=== PATIENT | male | born 1970 | race Caucasian/White ===

== ENCOUNTER → 2017-02-04 | Outpatient (CLI) | payer MEDICAID ==
[~2017-02-04] MED LIST: AMOXICILLIN 50500 MG PO; AUGMENTIN 875-1 EACH PO; AZITHROMYCIN250 MG PO; BACTRIM DS 8001 TA1 PO; BROMFED DM COU473 ML PO; CIPRO 500MG TA500 MG PO; CORTISPORIN TC10 ML OT; FLEXERIL10 MG PO; KEFLEX 500MG.500 MG PO; MEDROL 4MG. DOSE4 MG PO; NAPROXEN SODIU500 MG PO; NOMEDS; NOMEDS *; NOMEDS XX; PERCOCET 5/3251 EACH PO; PERIDEX OR1 DOSE/473 PO; PREDNISONE 20MG20 MG PO; PROCTOCREAM-HC2.51 TP; TESSALON PERLE100 MG PO; TRAMADOL 50MG T50 MG PO; VICODIN 5/500 T1 TAB PO; VOLTAREN75 MG PO; ZITHROMAX TRI-500 M1 PO; ZOFRAN ODT4 MG PO
[2017-02-04 14:30] LABS: HEMOGLOBIN 13.1 g/dL (14.1-18.0); LYMPH % 20.9 % (10-50)
[2017-02-04 14:32] LABS: BUN 9 mg/dL (7-18)
[2017-02-04 14:34] LABS: GFR (ESTIMATED) 80 ML/MIN (>60)
== END ==
LOC: LAB 13:25
PROVIDERS: Nurse Practitioner Family
DX: R25.2 Cramp and spasm (principal)

== ENCOUNTER 2017-06-24 18:43 | Emergency (ER) | payer MEDICAID ==
[~2017-06-24] VITALS: Ht 172.7 cm; Wt 61.7 kg
--- NOTE | 2017-06-24 19:03 | Urgent Treatment Center Report ---
History of Present Issue Date/Time Seen by Provider 06/24/17 1902 Visit Reason Pt arrived:Walked Presenting Problem:PT STATES HE HAS BACK PAIN AND A KNOT THAT IS PAINFUL ON HIS BUTT CHEEK. FOR 3 DAYS Location if Accident: Onset of symptoms date/time:/ or onset unknown for:MEDICAL HX UNKNOWN Have you (or family members/close friends) recently traveled outside the [place]? N If Yes, where/when: Have you had exposure to infectious disease within the past month? TB? Other? Specify: c/o "sore spot" on buttock "in crack near my hole". First noticed 3 days ago while wiping. "I don't know what hemorrhoids on males are like". Painful when wiped but no pain with movement or sitting. Tried to feel for it today but didn' t feel it. Wants to make sure resolved. Also wants to see about "having my back pain records relooked at". Hx of chronic back pain. Reports he was referred to Dr. Aguilera NS by PCP, Simone but he recommended lorena placement and pt refused that. "I want to keep working to feed my 5 girls and disability denied me". Pain has been slowly getting worse throughout the year. Right LE continues to feel numb at night, "has since before I saw Dr. Aguilera". Hasn't taken or tried anything for symptoms. "I am not one to take medications and I won't. 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 I start next week and want to be able to continue working.". Source patient Exam Limitations no limitations ALLERGIES Coded Allergies: No Known Allergies (11/05/16) Home Medications Reported Medications No Home Medications (NO HOME MEDICATIONS) 1 EACH XX ONCE History Medical History General CAD? No Angina: No ID: No Hypertension? No Hyperlipidemia? No CHF? No DVT? No PE? No COPD? Yes Asthma? No Anemia? No GERD? No Gastric ulcers? No GI Bleed? No Hernia? No Thyroid Problems? No Hypothyroidism? No CVA? No Seizures? No Diabetes? No Renal Insuffiency? No UTI? No Stones? No BPH? No GB Disease: No Nephritic Syndrome? No Asplenia? No Hepatitis? No Sickle Cell Disease? No Arthritis? Yes Migraines? No Cataracts? No Glaucoma? No MRSA? No HIV? No TB? No Anxiety? No Depression? No Cancer? No More? No Immunization HX DT/Tetanus < 1 Year Ago Surgical Hx Previous Surgery?Y Dental Surgery Social History Smoking Hx Smoker: Current Every Day Smoker Tobacco: Yes Type Cigarettes Packs/day < 1 Pack Alcohol Alcohol: No Review of Systems All Other Systems Reviewed and Negative Constitutional denies fever, denies malaise Gastrointestinal denies abdominal pain, denies constipation, denies diarrhea Musculoskeletal see HPI Skin see HPI, denies other (drainage) Psychiatric/Neurological see HPI Physical Exam Vital Signs Vital Signs Date Time Temp Pulse Resp B/P Pulse O2 O2 Flow FiO2 Ox Delivery Rate 06/24 1928 98.3 63 18 116/83 99 06/24 185 98.3 63 18 116/83 99 General Appearance normal appearance, no apparent distress Respiratory Status No: respiratory distress. Cardiovascular no peripheral edema Rectal normal exam Nurse present during exam? Yes (Terri) Neurologic alert Skin intact, normal color, warm/dry Medical Decision Making LABS/Meds/Orders Pt receiving controlled substance in ED? No Departure Departure Time of Disposition 1924 Disposition DC Home or Self Care(routine) Clinical Impression Primary Impression: Chronic back pain Qualifiers: Back pain location: low back pain Back pain laterality: unspecified Sciatica presence: with sciatica Sciatica laterality: sciatica of right side Qualified Code: M54.41 - Lumbago with sciatica, right side Secondary Impressions: Normal rectal exam Condition STABLE Referrals Sarita SPANN,John Head (Family) Call Tuesday and schedule FU appointment to discuss chronic back pain. Return to [facility] if "soreness" returns to buttock. Patient Instructions DI for Hemorrhoids Additional Instructions Educated about hemorrhoids and what to expect with them. Agrees to return if "spot" reappears. Plans to discuss chronic back pain with Simone PCP Discharge Counseling Counseled pt/family regarding diagnosis, home care, follow up needs at 1941
[2017-06-24 19:28] VITALS: BP 116/83
== END 2017-06-24 19:27 | disposition home or self-care (01) ==
LOC: UTC 18:43
DX: M54.41 Lumbago with sciatica, right side (principal); J44.9 Chronic obstructive pulmonary disease, unspecified; Z72.0 Tobacco use

== ENCOUNTER 2017-08-13 10:56 | Emergency (ER) | payer MEDICAID ==
[~2017-08-13] VITALS: Ht 172.7 cm; Wt 63.5 kg
--- OUTSIDE RECORDS SUMMARY | 2017-08-13 11:04 | External Medical Summary Rpt | CCD ---
Author Author , URMILA Organization URMILA Address Unknown Phone [email or web address] Care Team Providers Care Barrel Lathe Operator Name Role Phone Xavi Dickens MD, Xavi Dickens III, MD, Alexander Sharma III, MD Purpose Continuity of Care Document - 04-27-2013 through 2016 Problems Code Diagnosis DOS Provider Status 305.1 305.1 08-13-2013 [place] TOBACCO USE [facility] 465.9 465.9 ACUTE 08-13-2013 [place] URI NOS [facility] 496 496 CHR 08-13-2013 [place] AIR[facility]AY [facility] 455.4 455.4 EXT 05-07-2013 [place] THROMBOS [facility] HEMORRHOID [facility] B34.9 VIRAL INFECTION, UNSPECIFIED H60.90 UNSPECIFIED OTITIS EXTERNA, UNSPECIFIED EAR H92.09 OTALGIA, UNSPECIFIED EAR J06.9 ACUTE UPPER RESPIRATORY INFECTION, UNSPECIFIED J20.9 ACUTE BRONCHITIS, UNSPECIFIED J32.9 CHRONIC SINUSITIS, UNSPECIFIED J40 BRONCHITIS, NOT SPECIFIED ACUTE OR CHRONIC M54.30 SCIATICA, UNSPECIFIED SIDE M54.41 LUMBAGO WITH SCIATICA, RIGHT SIDE 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] R07.89 OTHER CHEST PAIN R11.10 VOMITING, UNSPECIFIED R11.2 NAUSEA WITH VOMITING, UNSPECIFIED S01.01XA LACERATION WITHOUT FOREIGN BODY OF SCALP, INITIAL ENCOUNTER Allergies, Adverse Reactions, Alerts Type Allergy to substance Adverse Reaction to Substance Substance Reaction Severity NO KNOWN ALLERGIES Unknown Unknown Medications Na ND Rx Da Fi Fi Am Da Di Ph RX Ph St me C No te ll ll ou ys ag ar # ys at rm s nt no ma ic us Or Da si cy ia de te s n re d Sa 63 10 0 No li 80 -0 ne 70 1- Lo 10 20 ng Fl 07 13 er us 5 h Ac 10 ti ML ve Sy ri ng e Vital Signs 08-13-2013 08:34 Name Value Interpretat Reference Comment ion Range Body 97.7 [degF] Temperature BP 72 mm[Hg] Diastolic BP Systolic 128 mm[Hg] Heart 66 /min Rate/Pulse O2% 98 % Respiratory 17 /min Rate 08-13-2013 08:26 Name Value Interpretat Reference Comment ion Range BP 72 mm[Hg] Diastolic BP Systolic 128 mm[Hg] Heart 66 /min Rate/Pulse O2% 98 % Respiratory 17 /min Rate 07-03-2013 19:56 Name Value Interpretat Reference Comment ion Range Body 99.0 [degF] Temperature BP 72 mm[Hg] Diastolic BP Systolic 136 mm[Hg] Heart 77 /min Rate/Pulse O2% 97 % Respiratory 16 /min Rate 07-03-2013 18:00 Name Value Interpretat Reference Comment ion Range BP 79 mm[Hg] Diastolic BP Systolic 123 mm[Hg] Heart 89 /min Rate/Pulse O2% 97 % Respiratory 20 /min Rate 05-07-2013 16:05 Name Value Interpretat Reference Comment ion Range Body 98.1 [degF] Temperature BP 73 mm[Hg] Diastolic BP Systolic 113 mm[Hg] Heart 67 /min Rate/Pulse O2% 97 % Respiratory 16 /min Rate 04-27-2013 09:15 Name Value Interpretat Reference Comment ion Range Body 98 [degF] Temperature BP 76 mm[Hg] Diastolic BP Systolic 114 mm[Hg] Heart 62 /min Rate/Pulse O2% 100 % Respiratory 20 /min Rate Results Labs Lab Lab Date Result Refere Interp Status Commen Order Detail nces retati t Range on BASIC METABOLIC PANEL (07-03-2013 18:00) Glucose 116 74-106 complet 013 mg/dL ed Bld-mCn 18:00 c BUN 12 7-18 complet Bld-mCn 013 mg/dL ed c 18:00 Creat 1.0 0.8-1.3 complet SerPl-m 013 mg/dL ed Cnc 18:00 ESTIMAT 79 50-200 complet ED 013 ML/MIN ed CREATIN 18:00 INE CLEARAN CE GFR 82 Greater complet (ESTIMA 013 ML/MIN than ed SHERITA) 18:00 60 Sodium 10-01-2 144 136-145 complet SerPl-s 013 mmoL/L ed Cnc 18:00 Potassi 3.7 3.5-5.1 complet um 013 mmoL/L ed SerPl-s 18:00 Cnc Chlorid 106 98-107 complet e 013 mmoL/L ed SerPl-s 18:00 Cnc CO2 27 21.0-32 complet SerPl-s 013 mmoL/L .0 ed Cnc 18:00 Calcium 8.5 8.5-10. complet 013 mg/dL 1 ed SerPl-m 18:00 Cnc TROPONIN I (07-03-2013 18:00) TROPONI Less 0.00-0. complet N I 013 than 06 ed 18:00 0.02 ng/mL CBC with AUTO DIFF (07-03-2013 18:00) WBC # 07-03- 9.5 4.8-10. complet Bld 013 K/MM3 8 ed Auto 18:00 RBC # 2 4.23 4.6-6.2 complet Bld 013 M/mm3 ed Auto 18:00 Hgb 13.6 14.1-18 complet Bld-mCn 013 g/dL .0 ed c 18:00 Hct Fr 40.9 % 42.0-52 complet Bld 013 .0 ed 18:00 MCV RBC 96.7 fl 82.2-97 complet 013 .8 ed 18:00 MCH RBC 32.2 pg 27-31.2 complet Qn 013 ed Auto 18:00 MEAN 33.3 31.8-35 complet CORPUSC 013 g/dl .4 ed ULAR 18:00 HGB CONC RDW RBC 14.2 % 11.5-17 complet Auto 013 .5 ed 18:00 Platele 304 142-424 complet t Bld 013 K/mm3 ed Ql 18:00 Manual MEAN 6.9 fl 7.4-10. complet PLATELE 013 4 ed T 18:00 VOLUME Granulo 61.7 % 37.0-80 complet cytes 013 .0 ed Fr Bld 18:00 Auto LYMPH % 07-03-2 31.3 % 10-50 complet 013 ed 18:00 Monocyt 10-2 3.4 % 1.7-9.3 complet es Fr 013 ed Bld 18:00 Auto Eosinop 10-2 3.0 % 0.1-12. complet hil Fr 013 0 ed Bld 18:00 Auto Basophi 07-03-2 0.7 % 0.1-2.0 complet ls Fr 013 ed Bld 18:00 Auto Granulo 07-03-2 5.9 1.3-8.0 complet cytes # 013 K/mm3 ed Bld 18:00 Auto Lymphoc 07-03-2 3.0 0.7-4.5 complet ytes Fr 013 K/mm3 ed Bld 18:00 Auto Monocyt 07-03-2 0.3 0.1-1.0 complet es # 013 K/mm3 ed Bld 18:00 Auto Eosinop 07-03-2 0.3 0.0-0.4 complet hil # 013 K/mm3 ed Bld 18:00 Auto Basophi 07-03-2 0.1 0-0.2 complet ls # 013 K/MM3 ed Bld 18:00 Auto STREP SCREEN (RAPID) (04-27-2013 08:45) STREP NEGATIV complet SCREEN 013 E ed (RAPID) 08:45 Encounters Encounter Start End Date Code Location Performer Type Date Emergency SULEIMAN Sharma (ER) 3 08:18 3 08:35 [facility] Alexander Dolan Emergency SULEIMAN Aldana MD (ER) 3 17:47 3 19:56 [facility] Emergency SULEIMAN Tamyao MD (ER) 3 14:37 3 16:07 [facility] er R. Emergency SULEIMAN Sharma (ER) 3 09:01 3 09:19 [facility] Alexander Dolan
--- OUTSIDE RECORDS SUMMARY | 2017-08-13 11:04 | External Medical Summary Rpt | CCD ---
Author Author , URMILA Organization URMILA Address Unknown Phone [email or web address] Care Team Providers Care Cable Maintainer Name Role Phone Xavi Dickens MD, Xavi Dickens III, MD, Alexander Sharma III, MD Purpose Continuity of Care Document - 04-27-2013 through 2016 Problems Code Diagnosis DOS Provider Status 305.1 305.1 08-13-2013 [place] TOBACCO USE [facility] 465.9 465.9 ACUTE 08-13-[address] [place] [address] [facility] 496 496 CHR 08-13-2013 [place] AIRWAY [facility] 455.4 455.4 EXT 05-07-2013 [place] THROMBOS [facility] HEMORRHOID [facility] B34.9 VIRAL INFECTION, UNSPECIFIED H60.90 UNSPECIFIED OTITIS [...] SULEIMAN Sharma (ER) 3 08:18 3 08:35 [facility] Alexander Dolan Emergency SULEIMAN Aldana MD (ER) 3 17:47 3 19:56 [facility] Emergency SULEIMAN Tamayo MD (ER) 3 14:37 3 16:07 [facility] er R. Emergency SULEIMAN Sharma (ER) 3 09:01 3 09:19 [facility] Alexander Dolan
--- OUTSIDE RECORDS SUMMARY | 2017-08-13 11:05 | External Medical Summary Rpt | CCD ---
Author Author [employer] Organization [employer] Address Unknown Phone Unavailable Purpose Continuity of Care Document - through 2016
--- OUTSIDE RECORDS SUMMARY | 2017-08-13 11:05 | External Medical Summary Rpt | CCD ---
Demographics Preferred Language Kinyarwanda Marital Status Unknown Denominational Affiliation Unknown Race Unknown Ethnic Group Unknown Author Author , URMILA KEARNS Address Unknown Phone [email or web address] Immunization Name Date Rout CVX Reac Dose Comm Prov Is Faci e tion ent ider Refu lity Give sed n Td 03-1 9 999 Hist H149 No H149 (meseret 0-19 ori lt), 97 al Info adso rmat rbed ion - Sour ce Unsp ecif ied
--- OUTSIDE RECORDS SUMMARY | 2017-08-13 11:05 | External Medical Summary Rpt | CCD ---
Demographics Preferred Language Italian Marital Status Unknown Faith Affiliation Unknown Race Unknown Ethnic Group Unknown Author Author , URMILA KEARNS Address Unknown Phone [email or web address] Immunization Name Date Rout CVX Reac Dose Comm Prov Is Faci e tion ent ider Refu lity Give sed n Td 03-1 9 999 Hist H149 No H149 (meseret 0-19 ori lt), 97 al Info adso rmat rbed ion - Sour ce Unsp ecif ied
--- NOTE | 2017-08-13 11:23 | Urgent Treatment Center Report ---
History of Present Issue Date/Time Seen by Provider 08/13/17 1122 Visit Reason Pt arrived:Walked Presenting Problem:PT C/O N/V/D SINCE TUESDAY AND RASH ON LEFT HIP Location if Accident: Onset of symptoms date/time:/ or onset unknown for:MEDICAL HX UNKNOWN Have you (or family members/close friends) recently traveled outside the [place]? N If Yes, where/when: Have you had exposure to infectious disease within the past month? TB? Other? Specify: Source patient, RN notes reviewed Exam Limitations no limitations Comment Patient states has had nausea, vomiting and diarrhea since last night and unable to keep anything down. Has "almost bronchitis", diagnosed by [facility] yesterday. Was given medications to treat that, but can't recall what they are, and again, states he can't keep anything down. Denies ear pain, sore throat. Denies fever. Woke up this am with a rash on his left hip as well. ALLERGIES Coded Allergies: No Known Allergies (11/05/16) Home Medications Reported Medications No Home Medications (NO HOME MEDICATIONS) 1 EACH XX ONCE History Medical History General CAD? No Angina: No CA: No Hypertension? No Hyperlipidemia? No CHF? No DVT? No PE? No COPD? Yes Asthma? No Anemia? No GERD? No Gastric ulcers? No GI Bleed? No Hernia? No Thyroid Problems? No Hypothyroidism? No CVA? No Seizures? No Diabetes? No Renal Insuffiency? No UTI? No Stones? No BPH? No GB Disease: No Nephritic Syndrome? No Asplenia? No Hepatitis? No Sickle Cell Disease? No Arthritis? Yes Migraines? No Cataracts? No Glaucoma? No MRSA? No HIV? No TB? No Anxiety? No Depression? No Cancer? No More? No Immunization HX DT/Tetanus < 1 Year Ago Surgical Hx Previous Surgery?Y Dental Surgery Social History Smoking Hx Smoker: Current Every Day Smoker Tobacco: Yes Type Cigarettes Packs/day < 1 Pack Alcohol Alcohol: No Review of Systems All Other Systems Reviewed and Negative Respiratory cough, shortness of breath, wheezing Gastrointestinal diarrhea, nausea, vomiting Skin rash Physical Exam Vital Signs Vital Signs Date Time Temp Pulse Resp B/P Pulse O2 O2 Flow FiO2 Ox Delivery Rate 08/13 1107 98.0 72 20 137/86 97 General Appearance normal appearance, no apparent distress Ear, Nose, Throat hearing grossly normal, normal ENT inspection Neck normal inspection, non-tender, supple, full range of motion Respiratory Status No: respiratory distress, trachea midline, chest symmetrical. Lung Sounds bilateral: decreased breath sounds, rhonchi. Cardiovascular normal exam, regular rate/rhythm, no peripheral edema, no gallop, no JVD, no murmur, no rub Gastrointestinal normal bowel sounds, normal exam, non tender Extremities non-tender, normal range of motion, normal inspection, normal capillary refill Neurologic alert, normal exam, oriented x 3 Mental status normal mood/affect Skin shingles (left anterior hip) Medical Decision Making LABS/Meds/Orders Pt receiving controlled substance in ED? No Progress [facility] Progress Notes Date 08/13/17 Comment Offered injections to treat COPD as he can't keep anything down, but he declined. Doesn't like shots. Departure Departure Time of Disposition 1134 Disposition DC Home or Self Care(routine) Clinical Impression Primary Impression: Gastroenteritis Secondary Impressions: Bronchitis Shingles Qualifiers: Herpes zoster complications: without complications Qualified Code: B02.9 - Zoster without complications Condition STABLE Referrals Simone Buckley APRN: 2 Days-Call Office Patient Instructions DI for Shingles, DI for Viral Gastroenteritis -- Adult Additional Instructions Clear liquids only X 24 hours, then BRAT diet X 24 hours and advance diet slowly as tolerated after that. No coffee, no milk. Take medications prescribed for bronchitis after stomach settles. No smoking. Keep left hip covered. Wash hands frequently. Neosporin to drying lesions. Discharge Counseling Counseled pt/family regarding diagnosis, medications/RX, home care, follow up needs Prescriptions Current Visit Scripts Ondansetron (Zofran Odt) 8 MG PO Q8HP PRN vomiting #15 TAB VALACYCLOVIR HCL (Valtrex) 1 GM PO BID #20 TAB Methylprednisolone (Medrol Dose Pedro) 4 MG PO UD #1 PEDRO TAKE DIRECTED ON PACKAGING at 1140
[2017-08-13] MEDS ORDERED: ZOFRAN ODT8 M1 PO (11:39)
[2017-08-13] MEDS ORDERED: VALTREX1 GM PO (11:39)
[2017-08-13] MEDS ORDERED: MEDROL 4MG. DOSE4 MG PO (11:39)
[2017-08-13 11:45] VITALS: BP 137/86
== END 2017-08-13 11:46 | disposition home or self-care (01) ==
LOC: UTC 10:56
DX: B02.9 Zoster without complications (principal); F17.210 Nicotine dependence, cigarettes, uncomplicated

== ENCOUNTER 2017-08-20 15:15 | Emergency (ER) | payer MEDICAID ==
[~2017-08-20] VITALS: Ht 172.7 cm; Wt 65.0 kg
[~2017-08-20 15:15] MED LIST changes: +VALTREX1 GM PO; +ZOFRAN ODT8 M1 PO
--- OUTSIDE RECORDS SUMMARY | 2017-08-20 15:20 | External Medical Summary Rpt | CCD ---
Author Author , URMILA Organization URMILA Address Unknown Phone [email or web address] Care Team Providers Care Electric Motor Analyst Name Role Phone Xavi Dickens MD, Xavi Dickens III, MD, Alexander Sharma III, MD Purpose Continuity of Care Document - 04-27-2013 through 2016 Problems Code Diagnosis DOS Provider Status 305.1 305.1 08-13-2013 [place] TOBACCO USE [facility] 465.9 465.9 ACUTE 08-13-2013 [place] URI NOS [facility] 496 496 CHR 08-13-2013 [place] AIRWAY [facility] OBSTRUCT [facility] NEC 455.4 455.4 EXT 05-07-2013 [place] THROMBOS [facility] HEMORRHOID [facility] B34.9 VIRAL [...] K/MM3 8 ed Auto 18:00 RBC # 07-03-2 4.23 4.6-6.2 complet Bld 013 M/mm3 ed [...] % 10-50 complet 013 ed 18:00 Monocyt 07-03-2 3.4 % 1.7-9.3 complet es Fr 013 ed Bld 18:00 Auto Eosinop 07-03-2 3.0 % 0.1-12. complet hil Fr 013 [...] SULEIMAN Sharma (ER) 3 08:18 3 08:35 [facility] Alexander Dolan Emergency SULEIMAN Aldana MD (ER) 3 17:47 3 19:56 [facility] Emergency SULEIMAN Tamayo MD (ER) 3 14:37 3 16:07 [facility] er R. Emergency SULEIMAN Sharma (ER) 3 09:01 3 09:19 [facility] Alexander Dolan
--- OUTSIDE RECORDS SUMMARY | 2017-08-20 15:20 | External Medical Summary Rpt | CCD ---
Author Author , URMILA Organization URMILA Address Unknown Phone [email or web address] Care Team Providers Care Benefits Representative Name Role Phone Xavi Dickens MD, Xavi Dickens III, MD, Alexander Sharma III, MD Purpose Continuity of Care Document - 04-27-2013 through 2016 Problems Code Diagnosis DOS Provider Status 305.1 305.1 08-13-2013 [place] TOBACCO USE [facility] 465.9 465.9 ACUTE 08-13-2013 [place] URI NOS [facility] 496 496 CHR 08-13-[address] [place] [address] [facility] OBSTRUCT [facility] NEC 455.4 455.4 EXT 05-07-[address] [place] [address] [facility] HEMORRHOID [facility] B34.9 VIRAL INFECTION, UNSPECIFIED H60.90 UNSPECIFIED OTITIS [...] SULEIMAN Sharma (ER) 3 08:18 3 08:35 [facility] Alexander Dolan Emergency SULEIMAN Aldana MD (ER) 3 17:47 3 19:56 [facility] Emergency SULEIMAN Tamayo MD (ER) 3 14:37 3 16:07 [facility] er R. Emergency SULEIMAN Sharma (ER) 3 09:01 3 09:19 [facility] Alexander Dolan
--- OUTSIDE RECORDS SUMMARY | 2017-08-20 15:20 | External Medical Summary Rpt | CCD ---
Demographics Preferred Language Arabic Marital Status Unknown Taoist Affiliation Unknown Race Unknown Ethnic Group Unknown Author Author , URMILA KEARNS Address Unknown Phone [email or web address] Immunization Name Date Rout CVX Reac Dose Comm Prov Is Faci e tion ent ider Refu lity Give sed n Td 03-1 9 999 Hist H149 No H149 (meseret 0-19 ori lt), 97 al Info adso rmat rbed ion - Sour ce Unsp ecif ied
--- OUTSIDE RECORDS SUMMARY | 2017-08-20 15:20 | External Medical Summary Rpt | CCD ---
Demographics Preferred Language Hebrew Marital Status Unknown Mu-Ism Affiliation Unknown Race Unknown Ethnic Group Unknown Author Author , URMILA KEARNS Address Unknown Phone [email or web address] Immunization Name Date Rout CVX Reac Dose Comm Prov Is Faci e tion ent ider Refu lity Give sed n Td 03-1 9 999 Hist H149 No H149 (meseret 0-19 ori lt), 97 al Info adso rmat rbed ion - Sour ce Unsp ecif ied
--- OUTSIDE RECORDS SUMMARY | 2017-08-20 15:21 | External Medical Summary Rpt ---
Author Author URMILA Hidalgo, URMILA Hidalgo Organization [employer] Address Unknown Phone Unavailable
--- NOTE | 2017-08-20 15:55 | Urgent Treatment Center Report ---
History of Present Issue Date/Time Seen by Provider 08/20/17 1013 Visit Reason Pt arrived:Walked Presenting Problem:PT STATES HE THINKS HE MAY HAVE SHINGLES Location if Accident: Onset of symptoms date/time:/ or onset unknown for:MEDICAL HX UNKNOWN Have you (or family members/close friends) recently traveled outside the [place]? N If Yes, where/when: Have you had exposure to infectious disease within the past month? TB? Other? Specify: Patient state that he was diagnosed with Shingles on 08/13/17 and placed on Valacyclovir twice daily for 10 days State that he has ran out of medication and wanted to know if he still needed to be taking the medication or not State that he still has some areas of shingle on him but most is dried up but he has one area on his back that is scabbed over ALLERGIES Coded Allergies: No Known Allergies (11/05/16) Home Medications Active Scripts Ondansetron (Zofran Odt) 8 MG PO Q8HP PRN vomiting #15 TAB Prov: 08/13/17 VALACYCLOVIR HCL (Valtrex) 1 GM PO BID #20 TAB Prov: 08/13/17 Methylprednisolone (Medrol Dose Andres) 4 MG PO UD #1 ANDRES Prov: 08/13/17 Reported Medications No Home Medications (NO HOME MEDICATIONS) 1 EACH XX ONCE History Medical History General CAD? No Angina: No MA: No Hypertension? No Hyperlipidemia? No CHF? No DVT? No PE? No COPD? Yes Asthma? No Anemia? No GERD? No Gastric ulcers? No GI Bleed? No Hernia? No Thyroid Problems? No Hypothyroidism? No CVA? No Seizures? No Diabetes? No Renal Insuffiency? No UTI? No Stones? No BPH? No GB Disease: No Nephritic Syndrome? No Asplenia? No Hepatitis? No Sickle Cell Disease? No Arthritis? Yes Migraines? No Cataracts? No Glaucoma? No MRSA? No HIV? No TB? No Anxiety? No Depression? No Cancer? No More? No Immunization HX DT/Tetanus < 1 Year Ago Surgical Hx Previous Surgery?Y Dental Surgery Social History Smoking Hx Smoker: Current Every Day Smoker Tobacco: Yes Type Cigarettes Packs/day < 1 Pack Alcohol Alcohol: No Review of Systems All Other Systems Reviewed and Negative Skin other (shingles) Physical Exam Vital Signs Vital Signs Date Time Temp Pulse Resp B/P Pulse O2 O2 Flow FiO2 Ox Delivery Rate 08/20 1526 98.4 86 20 133/93 99 General Appearance normal appearance, WD/WN, no apparent distress Respiratory Status Yes: trachea midline, chest symmetrical, non tender chest. No: respiratory distress. Lung Sounds bilateral: normal breath sounds, lungs clear. Cardiovascular normal exam, regular rate/rhythm, no peripheral edema Neurologic alert, normal exam, oriented x 3 Skin shingles, Shingles on left hip area dry, almost gone, no raised areas or redness area on belt line on his back crusted over appears to be drying up Medical Decision Making LABS/Meds/Orders Pt receiving controlled substance in ED? No Progress [facility] Progress Notes Comment Patient educated that according to prescription he should still have (6) pills ( 3days) worth of medication left, Educated patient that medication is usually taken until crusting starts to cover lesions or you have stopped having pain in the area. Advised him that medication he is on now is Acyclovir If pain continues follow up family doctor on Tuesday Departure Departure Time of Disposition 1603 Disposition DC Home or Self Care(routine) Clinical Impression Primary Impression: Shingles Qualifiers: Herpes zoster complications: without complications Qualified Code: B02.9 - Zoster without complications Condition STABLE Referrals Siomne Buckley APRN (Family) Patient Instructions DI for Shingles, Shingles Additional Instructions Follow up with family doctor on Tuesday if symptoms worsen or rash returns Over the counter Motrin or Tylenol as needed for pain or fever Return if needed Discharge Counseling Counseled pt/family regarding diagnosis, home care, follow up needs Prescriptions Current Visit Scripts Acyclovir (Acyclovir 800MG) 800 MG PO DAY #35 TAB at 1615
[2017-08-20] MEDS ORDERED: ACYCLOVIR800 MG PO (16:11)
[2017-08-20 16:25] VITALS: BP 133/93
== END 2017-08-20 16:26 | disposition home or self-care (01) ==
LOC: UTC 15:15
DX: B02.9 Zoster without complications (principal); F17.210 Nicotine dependence, cigarettes, uncomplicated; J44.9 Chronic obstructive pulmonary disease, unspecified

== ENCOUNTER 2017-09-06 09:24 | Emergency (ER) | payer MEDICAID ==
[~2017-09-06] VITALS: Ht 172.7 cm; Wt 63.5 kg
[~2017-09-06 09:24] MED LIST changes: +ACYCLOVIR800 MG PO
--- OUTSIDE RECORDS SUMMARY | 2017-09-06 09:51 | External Medical Summary Rpt | CCD ---
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 Name Role Phone Xavi Dickens MD, Xavi Dickens III, MD, Alexander Sharma III, MD Purpose Continuity of Care Document - 04-27-2013 through 2016 Problems Code Diagnosis DOS Provider Status 305.1 305.1 08-13-2013 [place] TOBACCO USE [facility] 465.9 465.9 ACUTE 08-13-2013 [place] URI NOS [facility] [id number] 496 CHR 08-13-2013 [place] AIRWAY [facility] OBSTRUCT [facility] NEC 455.4 455.4 EXT 05-07-2013 [place] THROMBOS [facility] HEMORRHOID [facility] B34.9 VIRAL INFECTION, UNSPECIFIED H60.90 UNSPECIFIED OTITIS [...] SULEIMAN Sharma (ER) 3 08:18 3 08:35 [facility] Alexander Dolan Emergency SULEIMAN Aldana MD (ER) 3 17:47 3 19:[address] [facility] Emergency SULEIMAN Tamayo MD (ER) 3 14:37 3 16:07 [facility] er R. Emergency SULEIMAN Sharma (ER) 3 09:01 3 09:19 [facility] Alexander Dolan
--- OUTSIDE RECORDS SUMMARY | 2017-09-06 09:51 | External Medical Summary Rpt | CCD ---
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 NEC 455.4 455.4 EXT 05-07-2013 [place] THROMBOS [facility] HEMORRHOID [facility] B34.9 VIRAL INFECTION, UNSPECIFIED H60.90 UNSPECIFIED [...] SULEIMAN Sharma (ER) 3 08:18 3 08:35 [facility] Alexander Dolan Emergency SULEIMAN Aldana MD (ER) 3 17:47 3 19:56 [facility] Emergency SULEIMAN Tamayo MD (ER) 3 14:37 3 16:07 [facility] er R. Emergency SULEIMAN Sharma (ER) 3 09:01 3 09:19 [facility] Alexander Dolan
--- OUTSIDE RECORDS SUMMARY | 2017-09-06 09:52 | External Medical Summary Rpt | CCD ---
Demographics Preferred Language Czech Marital Status Unknown [facility] Affiliation Unknown Race Unknown Ethnic Group Unknown Author Author , URMILA KEARNS Address Unknown Phone [email or web address] Immunization Name Date Rout CVX Reac Dose Comm Prov Is Faci e tion ent ider Refu lity Give sed n Td 03-1 9 999 Hist H149 No H149 (meseret 0-19 ori lt), 97 al Info adso rmat rbed ion - Sour ce Unsp ecif ied
--- OUTSIDE RECORDS SUMMARY | 2017-09-06 09:52 | External Medical Summary Rpt | CCD ---
Demographics Preferred Language Azeri Marital Status Unknown Sabianism Affiliation Unknown Race Unknown Ethnic Group Unknown Author Author , URMILA KEARNS Address Unknown Phone [email or web address] Immunization Name Date Rout CVX Reac Dose Comm Prov Is Faci e tion ent ider Refu lity Give sed n Td 03-1 9 999 Hist H149 No H149 (meseret 0-19 ori lt), 97 al Info adso rmat rbed ion - Sour ce Unsp ecif ied
--- NOTE | 2017-09-06 10:00 | Emergency Room Report ---
History of Present Illness Time Seen by MD Thompson Presenting Problem in Triage Pt arrived:Walked Presenting Problem:PT C/O RIGHT UPPER AND LOWER QUADRANT PAIN WITH RECTAL BLEEDING STARTING TODAY. 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 N Clinical Suspician of Infection? N Mental Status: 1 - Regular (Normal Baseline) Sepsis Risk:Low Sepsis Risk Have you (or family members/close friends) recently traveled outside the [place]? N If Yes, where/when: Have you had exposure to infectious disease within the past month? N TB? Other? Specify: Patient had a very large diarrhea stool today followed by a little rectal bleeding, which resolved. He has had some cramping pain in the epigastric area, nonradiating; no melena, no hematemesis, no unintentional weight loss. No fever. ALLERGIES Coded Allergies: No Known Allergies (11/05/16) Home Medications Active Scripts Ondansetron (Zofran Odt) 8 MG PO Q8HP PRN vomiting #15 TAB Prov: 08/13/17 Reported Medications No Home Medications (NO HOME MEDICATIONS) 1 EACH XX ONCE History Medical History General CAD? No Angina: No OK: No Hypertension? No Hyperlipidemia? No CHF? No DVT? No PE? No COPD? Yes Asthma? No Anemia? No GERD? No Gastric ulcers? No GI Bleed? No Hernia? No Thyroid Problems? No Hypothyroidism? No CVA? No Seizures? No Diabetes? No Renal Insuffiency? No End Stage Renal Disease? No UTI? No Stones? No BPH? No GB Disease: No Nephritic Syndrome? No Asplenia? No Hepatitis? No Sickle Cell Disease? No Arthritis? Yes Migraines? No Cataracts? No Glaucoma? No MRSA? No HIV? No TB? No Anxiety? No Depression? No Cancer? No More? No Immunization Hx DT/Tetanus < 1 Year Ago Surgical Hx Previous Surgery?Y Dental Surgery Social History Smoking Hx Smoker: Current Every Day Smoker Tobacco: Yes Type Cigarettes Packs/day < 1 Pack Alcohol Alcohol: No Review of Systems All Other Systems Reviewed and Negative Gastrointestinal see HPI Physical Exam Vital Signs Vital Signs Date Time Temp Pulse Resp B/P Pulse O2 O2 Flow FiO2 Ox Delivery Rate 09/06 1057 68 18 119/80 99 09/06 0932 98.4 64 18 117/74 99 09/06 0927 98.4 64 18 117/74 99 General Appearance normal appearance, WD/WN, no apparent distress Eye Exam - bilateral eye normal exam, bilateral eye PERRL, bilateral eye EOMI Neck normal inspection, non-tender, supple, full range of motion Respiratory Status Yes: trachea midline, chest symmetrical, non tender chest. No: respiratory distress, tender on palpation, use of accessory muscles, pain on inspiration, pain on expiration, productive cough, non productive cough. Lung Sounds bilateral: normal breath sounds, lungs clear. Cardiovascular normal exam, regular rate/rhythm, no peripheral edema, no gallop, no JVD, no murmur, no rub, normal peripheral pulses Gastrointestinal normal bowel sounds, normal exam, non tender, soft, no organomegaly, no pulsatile mass, no guarding, no rebound Strength 5 Upper Ext (L), 5 Upper Ext (R), 5 Lower Ext (L), 5 Lower Ext (R) Rectal normal exam (refuses rectal exam), understands risks vs. benefits of definitive rectal exam and refuses this examination today. He has had no further rectal bleeding and no further diarrhea. Will proceed with work up as far as possible and continue to reevaluate patient. Neurologic alert, normal exam, no motor/sensory deficits, oriented x 3 Glascow Coma Scale Glascow Coma Scale Response Value EYE response: 4 Spontaneously 4 MOTOR response: 6 OBEYS 6 VERBAL response: 5 Oriented & Converses 5 Total 15 Skin intact, normal color, warm/dry Medical Decision Making LABS/Meds/Orders Pt receiving controlled substance in ED? No Kee was queried for this patient? No Results/Orders Laboratory Tests 09/06/17 0950: Sodium 138, Potassium 4.4, Chloride 101, Carbon Dioxide 28, BUN 12, Creatinine 1.1, Estimated Creat Clear 75, Estimated GFR (MDRD) 72, Glucose 107 H, Calcium 8.7, Total Bilirubin 0.4, AST 15, ALT 16, Alkaline Phosphatase 84, Total Protein 7.6, Albumin 4.1, Globulin 3.5 H, Albumin/Globulin Ratio 1.2, Lipase 126, PT 11.1, INR 1.03, APTT 26.6, D-Dimer < 100, WBC 11.6 H, RBC 4.37 L, Hgb 13.7 L, Hct 41.5 L, MCV 94.8, RDW 13.5, Plt Count 341, MPV 7.2 L, Gran % 78.9, Gran # 9.2 H, Lymphocytes % 14.7, Monocytes % 4.2, Eosinophils % 1.9, Basophils % 0.4, Lymphocytes # 1.7, Monocytes # 0.5, Eosinophils # 0.2, Basophils # 0.1, PUBS MCHC 32.9, MCH 31.2 Current Medication Orders Sig/Aurelia Start time Last Medication Dose Route Stop Time Status Admin Sodium Chloride 1,000 ML .STK-MED ONE 09/06 1021 DC IV Pantoprazole Sodium 0 .STK-MED ONE 09/06 1020 DC IV Pantoprazole Sodium 40 MG ONCE ONE 09/06 1000 DC 09/06 IV 09/06 1001 1055 Sodium Chloride 10 ML PRN PRN 09/06 1000 AC IV 09/07 0953 Sodium Chloride 1,000 ML .Q1H1M 09/06 1000 DC 09/06 IV 09/06 1100 1056 Sodium Chloride 10 ML PRN PRN 09/06 1000 AC IV 09/07 0954 Sodium Chloride 10 ML ONCE ONE 09/06 1000 DC 09/06 IV 09/06 1001 1100 Orders Procedure Date/time Status DIET-NOTHING BY MOUTH 09/[address] ABD/PELVIS REQ 09/06 955 Complete IV SALINE LOCK 09/06 955 Active ORTHOSTATIC B/P 09/06 955 Active STOOL OCCULT BLOOD 09/06 955 Active PROTIME/PARTIAL PROTIME 09/06 955 Complete LIPASE 09/06 955 Complete D-DIMER 09/06 955 Complete CBC WITH AUTO DIFF 09/06 955 Complete CHEM 12 PROFILE 09/06 955 Complete XRAY/CT/US XRAY/CT/US CT abdomen, pelvis Time results known: 1244 CT Results normal/NAD, neg acute findings Progress ED Progress Notes Date 09/06/17 Time 1244 Comment No further diarrhea, no rectal bleeding, refuses rectal exam and understands risk of undiagnosed bleeding and agrees to close f/u PCP; with normal CT, normal labs, soft abdomen, not surgical candidate at this time, however, so stable enough for d/c with close f/u. Departure Departure Time of Disposition 1245 Disposition DC Home or Self Care(routine) Clinical Impression Primary Impression: Diarrhea Qualifiers: Diarrhea type: unspecified type Qualified Code: R19.7 - Diarrhea, unspecified Condition STABLE Referrals Sarita SPANN,John Head Patient Instructions Diarrhea Additional Instructions Clear liquids overnight, see Dr. Stein in 1 days for recheck, recommend Pepcid or Tagamet over the counter. Discharge Counseling Counseled pt/family regarding diagnosis, test results, medications/RX, home care, follow up needs ED Critical Care Critical Care No at 1248
[2017-09-06 10:05] LABS: HEMOGLOBIN 13.7 g/dL (14.1-18.0); LYMPH # 1.7 K/mm3 (0.7-4.5); LYMPH % 14.7 % (10-50)
--- NOTE | 2017-09-06 12:03 | RADIOLOGY REPORT PS360 ---
CT ABD PELVIS W/O CONTRAST CLINICAL INDICATION: RECTAL BLEEDING ORDERING PHYSICIAN: Isabela Chawla MD PATIENT AGE: 46 years COMPARISON: 03/19/2014 TECHNIQUE: Axial images obtained with sagittal and coronal reformats. PROCEDURE: Oral Contrast: None IV Contrast: None . FINDINGS: There is 4 mm noncalcified nodule in the right lung base posteriorly nonspecific. 5 mm hypointense areas noted in the lateral aspect of the left hepatic lobe nonspecific. Gallbladder, spleen, and adrenal glands and pancreas has an unremarkable unenhanced CT appearance. Nonobstructing 2 mm stone is present in the mid polar region of the right kidney. Hypoattenuation superior pole the right kidney 14. No hydronephrosis or stranding ureteral calculi. There is a 3 cm isointense nodule along the superior pole the left kidney. This is more dense somewhat one would expect for simple cyst but is not significant changed in size compared to 03/19/2014. Suggest outpatient ultrasound for further evaluation. The appendix has an unremarkable appearance. Urinary bladder slightly thickened which is nonspecific. No intestinal obstruction or free air is evident. No evidence of diverticulitis. Bowel gas pattern is nonspecific with some fluid-filled loops of small bowel within the pelvis. 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 There is 7 mm anterolisthesis of L5. IMPRESSION: 1. 3 cm isodense nodule in the superior pole the left kidney. This is more dense of what one would expect for simple cyst. Complex cyst or solid lesion is considered and ultrasound is recommended for further evaluation. 2. Nonobstructing right nephrolithiasis. 3. No acute abdominal or pelvic findings evident. 4. Other nonacute findings as described above. No intestinal obstruction or free air Mm probably related to a cyst
[2017-09-06 14:30] VITALS: BP 122/79
== END 2017-09-06 14:31 | disposition home or self-care (01) ==
LOC: ER 09:24
PROVIDERS: Emergency Medicine
DX: R19.7 Diarrhea, unspecified (principal); J44.9 Chronic obstructive pulmonary disease, unspecified; F17.210 Nicotine dependence, cigarettes, uncomplicated